=== PATIENT | male | born 1975 | race African-American/Black ===

== ENCOUNTER 2016-06-22 22:44 | Emergency (ER) | payer OTHER ==
[~2016-06-22] VITALS: Ht 172.7 cm; Wt 77.7 kg
--- NOTE | 2016-06-22 22:47 | ED.ADGEN ---
Past History Past Medical History: Sciatica Adult General Chief Complaint Chief Complaint " ... I got a messed up back.. in PT test thursday... and eva set it off.... I ve had problems for a while on it... started in 2008,... and another episode in 2012... and ... I even got a MRI on ..... they don't really see something on the x-rays... but I having some much discomfort tonight...." HPI HPI Patient is a 40 year old male who presents with above hx and complaints of left lumbar sacral sciatica. 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 Has had recurrent bouts of injury. Most recently developed spasm after PT testing on Thursday. Patient localizes pain along left sciatic nerve. Patient denies any fever. Patient denies any history of dysfunctional urine or bladder. Patient does complain of spasms in the lumbar area and into the left gluteal area.. Patient currently under follow -up with [facility] for his lumbar back pain. Plan MRI on the . History of immunosuppression. No history of cancer. No history of fevers. Patient up-to- date with vaccinations. No recent travel. Review of Systems Review of Systems Constitutional: Denies fever or chills [] Eyes: Denies change in visual acuity, redness, or eye pain [] HENT: Denies nasal congestion or sore throat [] Respiratory: Denies cough or shortness of breath [] Cardiovascular: No additional information not addressed in HPI [] GI: Denies abdominal pain, nausea, vomiting, bloody stools or diarrhea [] : Denies dysuria or hematuria [] Musculoskeletal: Complaints of left sciatic back pain or joint pain [] Integument: Denies rash or skin lesions [] Neurologic: Denies headache, focal weakness or sensory changes [] Endocrine: Denies polyuria or polydipsia [] Family History Family History Uncontributory Current Medications Current Medications Current Medications Medications (Trade) Dose Ordered Sig/Angela Start Time Stop Time Status Last Admin Dose Admin Ketorolac Tromethamine (Toradol) 60 mg 1X ONCE 06/23/16 01:00 06/23/16 01:01 DC 06/23/16 01:38 60 MG Lorazepam (Ativan) 2 mg 1X ONCE 06/23/16 01:00 06/23/16 01:01 DC 06/23/16 01:40 2 MG Methylprednisolone Acetate (Depo-Medrol) 40 mg 1X ONCE 06/23/16 01:00 06/23/16 01:01 DC 06/23/16 01:34 40 MG Morphine Sulfate (Morphine 10mg Syringe) 10 mg 1X ONCE 06/23/16 01:00 06/23/16 01:01 DC 06/23/16 01:32 10 MG Allergies Allergies Allergies Coded Allergies Type Severity Reaction Last Updated Verified No Known Drug Allergies 06/23/16 No Physical Exam Physical Exam Constitutional: Well developed, well nourished, in acute distress, non-toxic appearance. [] HENT: Normocephalic, atraumatic, bilateral external ears normal, oropharynx moist, no oral exudates, nose normal. [] Eyes: PERRLA, EOMI, conjunctiva normal, no discharge. [] Neck: Normal range of motion, no tenderness, supple, no stridor. [] Cardiovascular:Heart rate regular rhythm, no murmur [] Lungs & Thorax: Bilateral breath sounds clear to auscultation [] Abdomen: Bowel sounds normal, soft, no tenderness, no masses, no pulsatile masses. [] No saddle loss. Patient declines rectal exam this time Skin: Warm, dry, no erythema, no rash. [] Back: Left lumbar muscle spasm and tenderness, no CVA tenderness. [] No midline tenderness Extremities: Left gluteal addict tenderness, no cyanosis, no clubbing, ROM intact, no edema. [] Does have a limping gait because of left sciatic pain Neurologic: Alert and oriented X 3, normal motor function, normal sensory function, no focal deficits noted. [] DTRs +2 at patella. Psychologic: Affect anxious, judgement normal, mood normal. [] Current Patient Data Vital Signs Vital Signs Date Time Temp Pulse Resp B/P Pulse Ox O2 Delivery O2 Flow Rate FiO2 06/23/16 01:32 20 98 Room Air 06/23/16 00:22 98.0 71 EKG EKG [] Radiology/Procedures Radiology/Procedures [] Course & Med Decision Making Course & Med Decision Making Pertinent Labs and Imaging studies reviewed. (See chart for details). Patient continue ice packs as needed. Patient to keep follow-up with [facility]. Patient take Tylenol and ibuprofen for discomfort. For marked discomfort patient take Vicoprofen 4 times a day. Patient to give a trial of Voltaren cream. Must follow -up primary care. [] Patient encouraged to try Flexeril 10 mg up 3 times a day for spasms. Patient is hesitant to try pills. Final Impression Final Impression 1. Sciatica[]- Lt. Problems: Dragon Disclaimer Dragon Disclaimer This electronic medical record was generated, in whole or in part, using a voice recognition dictation system. VAL BUNCH MD Jun 22, 2016 22:47
[2016-06-22] MEDS ORDERED: DICL100G7 TP (23:54)
[2016-06-22] MEDS ORDERED: CYCL10TA2 PO (23:54)
[2016-06-22] MEDS ORDERED: HYDR-79 PO (23:54)
[2016-06-23 00:22] VITALS: BP 105/73
[2016-06-23] MEDS: MORPHINE SULFATE 10 MG/ML SYRINGE. SQ ONE (01:32)
[2016-06-23] MEDS: methylPREDNISolone ACETATE 40 MG/ML VIAL. IM ONE (01:34)
[2016-06-23] MEDS: KETOROLAC 60 MG/2 ML VIAL. IM ONE (01:38)
[2016-06-23] MEDS: LORAZEPAM 2 MG/ML VIAL IM ONE (01:40)
== END 2016-06-23 01:52 | disposition home or self-care (01) ==
LOC: ER 22:49
DX: M54.42 Lumbago with sciatica, left side (principal)
CPT/HCPCS: 96372; 99284; J1030; J1885; J2060; J2270